=== PATIENT | male | born 2000 | race Two or more races ===

== ENCOUNTER 2024-06-05 15:21 | Emergency (ER) | payer OTHER ==
[~2024-06-05] VITALS: Ht 172.7 cm; Wt 97.7 kg
--- NOTE | 2024-06-05 15:36 | ED.PDOC ---
History of Present Illness HPI Comments 23-year-old male brought by paramedics from dental office because of possible near-syncope. He was about to have his wisdom tooth removed when he had near syncopal episode. His heart rate was bradycardic for few seconds at that time. Patient states that he has no symptoms he is feeling fine. Denies nausea vomiting. Denies chest pain. Denies any other symptoms. Time Seen by MD: 15:25 Reviewed Notes: Nurses Notes, Medications, Allergies Allergies: Coded Allergies: NO KNOWN ALLERGIES (Unverified , 06/05/24) Information Source: Patient, Emergency Med Personnel Mode of Arrival: EMS Severity: Mild Timing: Minutes Duration: Since onset Past Medical History PAST MEDICAL HISTORY: Denies Surgical History: Denies all surgeries Social History Smoker: Non-Smoker Alcohol: Denies ETOH Use Drugs: Denies Drug Use Constitutional: denies: chills, diaphoresis, fatigue, fever, malaise, sweats, weakness, others EENTM: denies: blurred vision, double vision, ear bleeding, ear discharge, ear drainage, ear pain, ear ringing, eye pain, eye redness, hearing loss, mouth pain, mouth swelling, nasal discharge, nose bleeding, nose congestion, nose pain, photophobia, tearing, throat pain, throat swelling, voice changes, others Respiratory: denies: cough, hemoptysis, orthopnea, SOB at rest, shortness of breath, SOB with excertion, stridor, wheezing, others Cardiovascular: denies: chest pain, dizzy spells, diaphoresis, Dyspnea on exer tion, edema, irregular heart beat, left arm pain, lightheadedness, palpitations, PND, syncope, others Gastrointestinal: denies: abdomen distended, abdominal pain, blood streaked bowels, constipated, diarrhea, dysphagia, difficulty swallowing, hematemesis, melena, nausea, poor appetite, poor fluid intake, rectal bleeding, rectal pain, vomiting, others Genitourinary: denies: burning, dysuria, flank pain, frequency, hematuria, incontinence, penile discharge, penile sore, pain, testicle pain, testicle swelling, urgency, others Neurological: denies: dizziness, fainting, headache, left sided numbness, left sided weakness, numbness, paresthesia, pre-existing deficit, right sided numbness, right sided weakness, seizure, speech problems, tingling, tremors, weakness, others Musculoskeletal: denies: back pain, gout, joint pain, joint swelling, muscle pain, muscle stiffness, neck pain, others Integumetry: denies: bruises, change in color, change in hair/nails, dryness, laceration, lesions, lumps, rash, wounds, others Allergic/Immunocompromised: denies: Difficulty Healing, Frequent Infections, Hives, Itching, others Hematologic/Lymphatic: denies: anemia, blood clots, easy bleeding, easy bruising, swollen glands, others Endocrine: denies: excessive hunger, excessive sweating, excessive thirst, excessive urination, flushing, intolerance to cold, intolerance to heat, unexplained weight gain, unexplained weight loss, others Psychiatric: denies: anxiety, bipolar disorder, depression, hopeless, panic disorder, schizophrenia, sleepless, suicidal, others Physical Exam General Appearance: Mild Distress HEENT: Normal ENT Inspection, Pharynx Normal, TMs Normal Neck: Full Range of Motion, Non-Tender, Normal, Normal Inspection Respiratory: Chest Non-Tender, Lungs Clear, No Accessory Muscle Use, No Respiratory Distress, Normal Breath Sounds Cardiovascular: No Edema, No JVD, No Murmur, No Gallop, Normal Peripheral Pulses, Regular Rate/Rhythm Breast Exam: Deferred Gastrointestinal: No Organomegaly, Non Tender, No Pulsatile Mass, Normal Bowel Sounds, Soft Genitalia: Deferred Pelvic: Deferred Rectal: Deferred Extremities: No calf tenderness, Normal capillary refill, Normal inspection, Normal range of motion, Non-tender, No pedal edema Musculoskeletal : Apperance: Normal Neurologic: Alert, child welfare counselor II-XII nml as Tested, No Motor Deficits, Normal Affect, Normal Mood, No Sensory Deficits Cerebellar Function: NOT DONE Reflexes: NOT DONE Skin: Dry, Normal Color, Warm Peripheral Pulses: 3+ Radial (R), 3+ Radial (L) Lymphatic: No Adenopathy Was a procedure done? Was a procedure done?: No Differential Dx Considerations may include: Near-syncope Electrolyte imbalance X-Ray, Labs, Meds, VS Vital Signs Date Time Temp Pulse Resp B/P (MAP) Pulse Ox O2 Delivery O2 Flow Rate FiO2 06/05/24 16:51 98.2 61 16 110/50 (70) 99 98.2 06/05/24 16:18 61 19 98 Room Air* 0 21 06/05/24 16:11 61 19 98 Room Air 06/05/24 16:11 98.4 61 19 111/41 (64) 98 98.4 06/05/24 15:30 98.5 50 16 128/68 (88) 97 Lab Test 06/05/24 15:52 Range/Units Troponin I High Sensitivity < 3 L </=54 ng/L Current Medications Medications (Trade) Dose Ordered Sig/Clay Route Start Time Stop Time Status Last Admin Sodium Chloride 1,000 ml @ 1,000 mls/hr Q1H ONCE IV 06/05/24 15:45 06/05/24 16:44 DC 06/05/24 16:16 Patient alert. Possible near-syncope. Vitals stable. Answering all questions. Possible vasovagal. Establish intravenous access. Was given fluids. He insists on going home. He states that he has no symptoms. CT of the head reviewed does not show any acute changes. EKG reviewed with plow shaker Dr. Rae who stated that normal EKG. Patient did here me speaking to the plow shaker stating that the EKG was normal. Denies chest pain. Denies shortness a breath. No leg swelling. No known heart rate. Cardiac marker within normal limits. Explained to the patient. Was told to follow up with his primary care physician. Was told to come back if there is any problem. Time of 1ST Reevaluation: 15:27 Reevaluation 1ST: Improved Patient Education/Counseling: Diagnosis, Treatment, Prognosis, Need For Follow Up Family Education/Counseling: Need For Follow Up Departure 1 Departure Time of Disposition: 15:35 Impression: Primary Impression: Vasovagal syncope Disposition: 30 STILL A PATIENT Condition: Good Discharged With: Self Critical Care Note Critical Care Time?: No Stability Stability form required: No Heart Score Heart Score: Heart Score Response (Comments) Value History Slightly Suspicious 0 EKG Normal 0 Age <45 0 Risk Factors No known risk factors 0 Troponin N/A 0 Total 0 LISSETTE RAMOS MD Jun 05, 2024 15:36
--- NOTE | 2024-06-05 16:10 | DVH ---
EXAM: CT HEAD WITHOUT CONTRAST INDICATION: syncope TECHNIQUE: CT of the head without intravenous contrast. Radiation Dose Information: CT Dose: CTDI volume is 65.13 mGy. Dose-length product is 1283.23 mGy*cm The dose indicators for CT are the volume Computed Tomography (CT) Dose Index (CTDIvol) and the Dose Length Product (DLP), and are measured in units of mGy and mGy-cm, respectively. These indicators are not patient dose, but values generated from the CT scanner acquisition factors. The report includes radiation exposure data for exposures received during this examination. COMPARISON: None FINDINGS: There is no evidence of acute intracranial hemorrhage, extra-axial collection, mass effect, midline s hift, herniation or hydrocephalus. The ventricles, sulci and cisterns are age appropriate. The britton-white differentiation is intact. Patchy periventricular and subcortical white matter hypoattenuation is nonspecific but may be related to small vessel ischemic disease. The visualized paranasal sinuses and mastoid air cells are clear. The surrounding soft tissues and osseous structures are unremarkable. IMPRESSION: 1. No acute intracranial hemorrhage. 2. No CT findings of territorial ischemia. HS:Y
[2024-06-05] MEDS: SODIUM CHLORIDE 0.9% 1,000 ML IV ONE (16:16)
[2024-06-05 16:18] VITALS: PULSE 61; RESP 19; O2SAT 98
[2024-06-05 22:10] VITALS: BP 117/58; PULSE 75; RESP 18; TEMP 97.1; O2SAT 99
--- NOTE | 2024-06-08 10:45 | ECG ---
[facility] Test Date: 2024-06-05 Test Time: 17:15:20 Pat Name: CHRISTY SALGADO Department: ER Room: Gender: M Hand Laster: JUAN PABLO : 2000 Requested By: LISSETTE RAMOS Order Number: [id number] Reading MD: Melvin Rae Measurements Intervals [place] Rate: 52 P: 48 ND: 133 QRS: 84 QRSD: 97 T: 21 QT: 398 QTc: 370 Interpretive Statements Sinus rhythm Probable inferior infarct, old Lateral infarct, acute (LAD) Borderline ST elevation, anterior leads Electronically Signed On 06-13-2024 16:48:10 PST by Melvin Rae Please click the below link to view image of tracing.
--- NOTE | 2024-06-08 16:13 | ECG ---
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
== END 2024-06-05 22:17 | disposition home or self-care (01) ==
LOC: EDBD 15:21 → ER 15:21
DX: R55 Syncope and collapse (principal); R94.31 Abnormal electrocardiogram [ECG] [EKG]
CPT/HCPCS: 36415; 70450; 84484; 93005; 96360; 99285; J7030